=== PATIENT | female | born 1955 | race Caucasian/White ===

== ENCOUNTER → 2020-05-04 | Outpatient (CLI) | payer MEDICARE, OTHER ==
[2020-05-04 14:49] LABS: HEMOGLOBIN 14.1 gm/dl (12.3-15.3); RED BLOOD COUNT 4.32 M/UL (4.00-5.10); WHITE BLOOD COUNT 5.8 K/UL (4.5-11.0)
[2020-05-04 15:17] LABS: BUN/CREATININE RATIO 9 (0-10)
[2020-05-05 11:12] LABS: HBSAG SCREEN Negative (Negative); HEP A AB, IGM Negative (Negative); HEP B CORE AB, IGM Negative (Negative); HEP C VIRUS AB <0.1 (0.0-0.9)
[2020-05-07 18:08] LABS: QUANTIFERON MITOGEN VALUE >10.00 IU/mL (.); QUANTIFERON NIL VALUE 0.04 IU/mL (.); QUANTIFERON TB1 AG VALUE 0.64 IU/mL (.); QUANTIFERON TB2 AG VALUE 0.66 IU/mL (.); QUANTIFERON-TB GOLD PLUS Positive (Negative)
== END ==
LOC: LAB 13:38
PROVIDERS: Dermatology
DX: L40.1 Generalized pustular psoriasis (principal); L40.0 Psoriasis vulgaris; F41.1 Generalized anxiety disorder; R53.82 Chronic fatigue, unspecified; J43.9 Emphysema, unspecified
CPT/HCPCS: 36415; 71046; 80053; 80074; 85027; 86140

== ENCOUNTER → 2020-12-26 | Outpatient (CLI) | payer MEDICARE, OTHER | LOC: HEART 5 09:30 | DX: R07.9 Chest pain, unspecified (principal); R06.02 Shortness of breath | CPT/HCPCS: 93306 ==

== ENCOUNTER 2021-03-14 15:54 | Emergency (ER) | payer MEDICARE, OTHER ==
[2021-03-14 19:27] LABS: HEMOGLOBIN 15.6 gm/dl (12.3-15.3); RED BLOOD COUNT 4.63 M/UL (4.00-5.10); WHITE BLOOD COUNT 7.7 K/UL (4.5-11.0)
[2021-03-14 20:03] LABS: BUN/CREATININE RATIO 8 (0-10)
[2021-03-14] MEDS ORDERED: BENTYL 20MG TAB20 MG PO (23:01)
[2021-03-14] MEDS ORDERED: ZOFRAN ODT 4 MG4 MG PO (23:01)
== END 2021-03-15 00:15 | disposition home or self-care (01) ==
LOC: ER1 15:54
PROVIDERS: Physician Assistant
DX: E87.6 Hypokalemia (principal); R11.2 Nausea with vomiting, unspecified; R19.7 Diarrhea, unspecified; E11.9 Type 2 diabetes mellitus without complications; F17.290 Nicotine dependence, other tobacco product, uncomplicated
CPT/HCPCS: 80053; 81001; 82550; 82553; 83690; 84484; 85025; 87086; 87186; 99284; Q9967

== ENCOUNTER → 2021-12-19 | Outpatient (CLI) | payer MEDICARE ==
[~2021-12-19] MED LIST: BENTYL 20MG TAB20 MG PO; ZOFRAN ODT 4 MG4 MG PO
== END ==
LOC: KOH-I 12-11 13:00
DX: N39.0 Urinary tract infection, site not specified (principal)
CPT/HCPCS: 76775